=== PATIENT | male | born 1955 | race Caucasian/White ===

== ENCOUNTER → 2016-09-26 | Outpatient (CLI) | payer OTHER ==
[~2016-09-26] MED LIST: COZAAR 25MG25 MG/TAB PO; NORVASC 5MG5 MG/TAB PO; PRAVACHOL 40MG40 MG PO; TENORMIN 5050 MG/TAB PO
== END ==
LOC: COL.VAS 07:48
DX: R06.02 Shortness of breath (principal)

== ENCOUNTER → 2016-11-07 | Outpatient (CLI) | payer OTHER | LOC: COL.RAD 08:41 | DX: R07.89 Other chest pain (principal); R93.7 Abnormal findings on diagnostic imaging of other parts of musculoskeletal system | CPT/HCPCS: A9503 ==

== ENCOUNTER 2017-01-01 07:16 | Day surgery (SDC) | payer OTHER ==
[~2017-01-01] VITALS: Ht 177.8 cm; Wt 105.7 kg
[2017-01-01] VITALS (11 sets, daily range): BP systolic 111–140; BP diastolic 55–87; PULSE 54–81; TEMP 97.5–98.7
[2017-01-01] MEDS ORDERED: TENORMIN 5050 MG/TAB PO (08:24)
[2017-01-01] MEDS ORDERED: NORVASC 5MG5 MG/TAB PO (08:25)
[2017-01-01] MEDS ORDERED: COZAAR 25MG25 MG/TAB PO (08:25)
[2017-01-01] MEDS ORDERED: PRAVACHOL 40MG40 MG PO (08:26)
[2017-01-02 01:32] VITALS: BP 121/69; PULSE 64; TEMP 97.6
[2017-01-02 05:27] VITALS: BP 123/62; PULSE 67; TEMP 97.7
[2017-01-02 09:55] VITALS: BP 137/47; PULSE 72; TEMP 97.4
== END 2017-01-02 12:56 | disposition home or self-care (01) ==
LOC: SDCO 07:16 → SURG 12:13 → SDCO 14:00
DX: R09.1 Pleurisy (principal); R07.9 Chest pain, unspecified; J98.11 Atelectasis; J92.9 Pleural plaque without asbestos; I10 Essential (primary) hypertension; E78.00 Pure hypercholesterolemia, unspecified; Z79.899 Other long term (current) drug therapy
CPT/HCPCS: OP; A9284; J0690; J1100; J1885; J2250; J2270; J2405; J2704; J2765; J3010; J7120